=== PATIENT | male | born 1990 | race Caucasian/White ===

== ENCOUNTER 2018-09-05 19:51 | Emergency (ER) | payer MEDICAID ==
[2018-09-05] MEDS ORDERED: predniSONE 20 MG Tab ONE (20:03)
[2018-09-05] MEDS ORDERED: Albuterol/Ipratropium 3.0-0.5 MG/3 ML Neb Soln ONE ×2 (20:03→21:22)
[2018-09-05] MEDS ORDERED: predniSONE 20 MG Tab PO STA (20:05)
[2018-09-05] MEDS ORDERED: Albuterol/Ipratropium 3.0-0.5 MG/3 ML Neb Soln NEB ONE (20:05)
--- NOTE | 2018-09-05 20:34 | EDM.PDOC ---
ED HPI GENERAL MEDICAL PROBLEM - General Chief Complaint: Respiratory Problem Stated Complaint: BAD COUGH, PASSED OUT Time Seen by Provider: 09/05/18 20:22 Source of Information: Reports: Patient History Limitations: Reports: No Limitations - History of Present Illness INITIAL COMMENTS - FREE TEXT/NARRATIVE: Patient is a 27-year-old gentleman who presents to the emergency department this evening with a complaint of cough, congestion, and wheezing for the past 3 days. Patient has a history of asthma and is currently taking home nebulizer treatments with albuterol, has young children at home who both were recently diagnosed with URI. Patient states that he's had some chills, however, no documented fever. Patient denies chest pain, nausea, vomiting, diarrhea, or out of country travel. Onset: Gradual Duration: Day(s): Location: Reports: Chest Severity: Mild Improves with: Reports: None Worsens with: Reports: Breathing Associated Symptoms: Reports: Cough, Fever/Chills, Shortness of Breath. Denies : cough w sputum, Nausea/Vomiting Treatments PROFESSIONAL ADVISOR: Reports: Home Treatments (Albuterol nebulizer) - Related Data Allergies Allergy/AdvReac Type Severity Reaction Status Date / Time No Known Allergies Allergy Verified 09/05/18 20:41 Home Meds: Home Meds Albuterol [Ventolin HFA] 2 puff INH ASDIRECTED PRN 09/13/16 [History] Albuterol/Ipratropium [DuoNeb 3.0-0.5 MG/3 ML] 3 ml INH QID PRN 09/13/16 [ History] Cyclobenzaprine [Flexeril] 10 mg PO TID PRN 09/13/16 [History] Albuterol/Ipratropium [DuoNeb 3.0-0.5 MG/3 ML] 3 ml .XX QID #30 neb 09/05/18 [Rx ] Azithromycin [Zithromax] 500 mg PO DAILY #4 tab 09/05/18 [Rx] predniSONE [Prednisone] 40 mg PO DAILY #6 tablet 09/05/18 [Rx] Past Medical History - Past Health History Medical/Surgical History: Denies Medical/Surgical History HEENT History: Reports: None Cardiovascular History: Reports: Other (See Below) Other Cardiovascular History: Patient is not certain about his cholesterol status however note fatty liver by CT scan Respiratory History: Reports: Asthma, Bronchitis, Recurrent Gastrointestinal History: Reports: GERD Genitourinary History: Reports: None Musculoskeletal History: Reports: Arthritis, Back Pain, Chronic, Fracture, Osteoarthritis, Other (See Below) Other Musculoskeletal History: Boxer's fracture of the right hand at age 17 Neurological History: Reports: Headaches, Chronic, Migraines, Seizure, Other ( See Below) Other Neuro History: Unknown type of seizure at about age 20 Psychiatric History: Reports: None Endocrine/Metabolic History: Reports: None, Obesity/BMI 30+ Hematologic History: Reports: None Immunologic History: Reports: None Oncologic (Cancer) History: Reports: None Dermatologic History: Reports: None - Infectious Disease History Infectious Disease History: Reports: Chicken Pox - Past Surgical History HEENT Surgical History: Reports: Adenoidectomy, Myringotomy w Tube(s), Tonsillectomy, Other (See Below) Male Surgical History: Reports: Circumcision, Vasectomy, Other (See Below) Musculoskeletal Surgical History: Reports: Arthroscopic Knee, Arthroscopic Procedure, ORIF, Other (See Below) - Past Imaging History Past Imaging History: Reports: CAT Scan, MRI Social & Family History - Caffeine Use Caffeine Use: Reports: Coffee, Soda - Living Situation & Occupation Living situation: Reports: with Significant Other, with Family Occupation: Unemployed ED ROS GENERAL - Review of Systems Review Of Systems: ROS reveals no pertinent complaints other than HPI. Constitutional: Reports: Chills HEENT: Reports: No Symptoms Respiratory: Reports: Shortness of Breath, Wheezing Cardiovascular: Reports: No Symptoms Endocrine: Reports: No Symptoms GI/Abdominal: Reports: No Symptoms : Reports: No Symptoms Musculoskeletal: Reports: No Symptoms Skin: Reports: No Symptoms Neurological: Reports: No Symptoms Psychiatric: Reports: No Symptoms Hematologic/Lymphatic: Reports: No Symptoms Immunologic: Reports: No Symptoms ED EXAM, GENERAL - Physical Exam Exam: See Below Exam Limited By: No Limitations General Appearance: Alert, WD/WN, No Apparent Distress Eye Exam: Bilateral Eye: Normal Inspection Ears: Normal External Exam, Normal Canal, Normal TMs Nose: Normal Inspection, No Blood, Clear Rhinorrhea Throat/Mouth: Normal Inspection, Normal Oropharynx, No Airway Compromise Head: Atraumatic, Normocephalic Neck: Normal Inspection, Supple. No: Lymphadenopathy (L), Lymphadenopathy (R) Respiratory/Chest: No Respiratory Distress, Wheezing (Expiratory, throughout) Cardiovascular: Regular Rate, Rhythm, No Murmur Extremities: Normal Inspection, No Pedal Edema Neurological: Alert, Oriented, Normal Cognition Psychiatric: Normal Affect, Normal Mood Skin Exam: Warm, Dry, Intact, Normal Color, No Rash Lymphatic: No Adenopathy Course - Vital Signs Last Recorded V/S: Last Vital Signs Temp 98.3 F 09/05/18 19:51 Pulse 87 09/05/18 19:51 Resp 22 H 09/05/18 19:51 BP 130/80 09/05/18 19:51 Pulse Ox 94 L 09/05/18 19:51 - Orders/Labs/Meds Orders: Active Orders 24 hr Category Date Time Status Chest 2V [CR] Stat Exams 09/05/18 20:02 Ordered Meds: Medications Discontinued Medications Generic Name Dose Route Start Last Admin Trade Name Jannet PRN Reason Stop Dose Admin Albuterol/Ipratropium Confirm 09/05/18 20:03 09/05/18 20:10 Duoneb 3.0-0.5 Mg/3 Ml Administered 09/05/18 20:04 Not Given Dose 3 ml .ROUTE .STK-MED ONE Albuterol/Ipratropium 3 ml 09/05/18 20:05 09/05/18 20:07 Duoneb 3.0-0.5 Mg/3 Ml NEB 09/05/18 20:06 3 ml ONETIME ONE Administration Azithromycin 500 mg 09/05/18 20:56 Zithromax PO 09/05/18 20:57 ONETIME ONE Prednisone Confirm 09/05/18 20:03 09/05/18 20:10 Prednisone Administered 09/05/18 20:04 Not Given Dose 40 mg .ROUTE .STK-MED ONE Prednisone 40 mg 09/05/18 20:05 09/05/18 20:07 Prednisone PO 09/05/18 20:06 40 mg NOW STA Administration - Radiology Interpretation Free Text/Narrative:: Chest x-ray shows mild right perihilar congestion - Re-Assessments/Exams Free Text/Narrative Re-Assessment/Exam: 09/05/18 21:00 Patient afebrile, vital signs stable, breath sounds clear, influenza negative. patient given 500 mg Zithromax and 40 mg prednisone in ER. Patient given prescription for DuoNeb, prednisone, and Zithromax. Departure - Departure Time of Disposition: 21:00 Disposition: Home, Self-Care Condition: Good Clinical Impression: Asthmatic bronchitis with acute exacerbation Qualifiers: Asthma severity: mild Asthma persistence: intermittent Qualified Code(s): J45.21 - Mild intermittent asthma with (acute) exacerbation - Discharge Information Prescriptions: Albuterol/Ipratropium [DuoNeb 3.0-0.5 MG/3 ML] 3 ml .XX QID #30 neb Azithromycin [Zithromax] 500 mg PO DAILY #4 tab predniSONE [Prednisone] 40 mg PO DAILY #6 tablet Instructions: Bronchospasm, Adult, Ejfo-ce-[id number], Asthma, Adult, [id number], How to Use a Nebulizer, Adult, Acute Bronchitis, Adult, [id number] Referrals: Lexus Elizondo, MOLDING PLASTERER [Primary Care Provider] - Forms: ED Department Discharge Additional Instructions: Follow-up at [facility] in 1-2 days. Return to emergency sooner if symptoms continue or worsen. - My Orders Last 24 Hours: My Active Orders 09/05/18 20:02 Chest 2V [CR] Stat - Assessment/Plan Last 24 Hours: My Active Orders 09/05/18 20:02 Chest 2V [CR] Stat Assessment:: Asthmatic bronchitis Plan: Follow-up with PCP
[2018-09-05] MEDS ORDERED: Azithromycin 250 MG Tab PO ONE (20:56)
[2018-09-05 23:58] VITALS: BP 142/74
--- NOTE | 2018-09-06 08:17 | CR ---
[id number] RAD/RAD Chest PA And Lateral EXAM: RAD Chest PA And Lateral CLINICAL DATA: COUGH. FEVER. COMPARISON: CORRELATION IS MADE WITH THE EXAM OF APRIL 23, 2011. FINDINGS: The lungs are clear. The cardiomediastinal contour is normal. The regional bones and soft tissues are unremarkable. IMPRESSION: NO ACUTE PROCESS. Yuniel Marshall MD 09/06/18 0814 Thank you for allowing us to participate in the care of your patient.
== END 2018-09-05 21:30 | disposition home or self-care (01) ==
LOC: KA.ED 19:51
DX: J45.21 Mild intermittent asthma with (acute) exacerbation (principal); Z79.899 Other long term (current) drug therapy
CPT/HCPCS: 71046; 87804; 99283-25; A9270-GY; J7620-GY

== ENCOUNTER 2018-09-26 06:34 | Emergency (ER) | payer MEDICAID ==
[2018-09-26 06:40] VITALS: BP 150/90
[2018-09-26] MEDS ORDERED: Acetaminophen/HYDROcodone 325-5 MG Tab PO ONE (07:18)
[2018-09-26] MEDS ORDERED: Cephalexin 250 MG Cap PO ONE (07:18)
[2018-09-26] MEDS ORDERED: Ketorolac 10 MG Tab PO ONE (07:18)
--- NOTE | 2018-09-26 07:27 | EDM.PDOC ---
ED HPI GENERAL MEDICAL PROBLEM - General Chief Complaint: General Stated Complaint: tooth ache/broken tooth Time Seen by Provider: 09/26/18 07:00 Source of Information: Reports: Patient History Limitations: Reports: No Limitations - History of Present Illness INITIAL COMMENTS - FREE TEXT/NARRATIVE: 27-year-old male presents to the emergency room with complaints of dental pain. Patient states that he was eating supper last night when he felt a sharp pain and had a fracture of his right bottom molar. He did take some [id number] anti-inflammatories and Tylenol hoping he would have enough relief that would last him through Thursday to get to the dentist. He reports he has had little relief and no sleep last night. He now presents emergency room for evaluation. He does feel some slight fullness in his right ear. No other complaints were voiced. He was seen in the emergency room couple weeks ago for an upper respiratory infection. 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: Acetaminophen right lower side/tooth pain Pain Score (Numeric/FACES): 9 - Related Data Allergies Allergy/AdvReac Type Severity Reaction Status Date / Time No Known Drug Allergies Allergy Cannot Verified 09/26/18 06:43 Remember Home Meds: Home Meds Albuterol [Ventolin HFA] 2 puff INH ASDIRECTED PRN 09/13/16 [History] Albuterol/Ipratropium [DuoNeb 3.0-0.5 MG/3 ML] 3 ml INH QID PRN 09/13/16 [ History] Cyclobenzaprine [Flexeril] 10 mg PO TID PRN 09/13/16 [History] Past Medical History - Past Health History Medical/Surgical History: Denies Medical/Surgical History HEENT History: Reports: None Cardiovascular History: Reports: Other (See Below) Other Cardiovascular History: Patient is not certain about his cholesterol status however note fatty liver by CT scan Respiratory History: Reports: Asthma, Bronchitis, Recurrent Gastrointestinal History: Reports: GERD Genitourinary History: Reports: None Musculoskeletal History: Reports: Arthritis, Back Pain, Chronic, Fracture, Osteoarthritis, Other (See Below) Other Musculoskeletal History: Boxer's fracture of the right hand at age 17 Neurological History: Reports: Headaches, Chronic, Migraines, Seizure, Other ( See Below) Other Neuro History: Unknown type of seizure at about age 20 Psychiatric History: Reports: None Endocrine/Metabolic History: Reports: None, Obesity/BMI 30+ Hematologic History: Reports: None Immunologic History: Reports: None Oncologic (Cancer) History: Reports: None Dermatologic History: Reports: None - Infectious Disease History Infectious Disease History: Reports: Chicken Pox - Past Surgical History Head Surgeries/Procedures: Reports: None HEENT Surgical History: Reports: Adenoidectomy, Myringotomy w Tube(s), Tonsillectomy, Other (See Below) Male Surgical History: Reports: Circumcision, Vasectomy, Other (See Below) Musculoskeletal Surgical History: Reports: Arthroscopic Knee, Arthroscopic Procedure, ORIF, Other (See Below) - Past Imaging History Past Imaging History: Reports: CAT Scan, MRI Social & Family History - Tobacco Use Smoking Status *Q: Current Every Day Smoker Years of Tobacco use: 12 Packs/Tins Daily: 1 Used Tobacco, but Quit: No Second Hand Smoke Exposure: Yes - Caffeine Use Caffeine Use: Reports: Coffee, Energy Drinks, Soda, Tea - Recreational Drug Use Recreational Drug Use: No - Living Situation & Occupation Living situation: Reports: with Significant Other, with Family Occupation: Unemployed ED ROS ENT - Review of Systems Review Of Systems: ROS reveals no pertinent complaints other than HPI. ED EXAM, ENT - Physical Exam Exam: See Below Exam Limited By: No Limitations General Appearance: Alert, Mild Distress, Obese, Other (Unkempt) Eye Exam: Bilateral Eye: EOMI, PERRL Ears: Normal External Exam, Normal Canal, Hearing Grossly Normal, Normal TMs Nose: Normal Inspection Mouth/Throat: Normal Lips, Normal Oropharynx, Dental Pain, Dental Trauma (Tooth fracture of the bottom second to last molar on the right side #31). No: Dental Abcess, Peritonsillar Mass Head: Atraumatic, Normocephalic Neck: Normal Inspection, Supple Respiratory/Chest: No Respiratory Distress Course - Vital Signs Last Recorded V/S: Last Vital Signs Temp 98.9 F 09/26/18 06:35 Pulse 89 09/26/18 06:35 Resp 18 09/26/18 06:35 BP 150/90 H 09/26/18 06:35 Pulse Ox 95 09/26/18 06:35 - Orders/Labs/Meds Meds: Medications Discontinued Medications Generic Name Dose Route Start Last Admin Trade Name Jannet PRN Reason Stop Dose Admin Hydrocodone Bitart/Acetaminophen 6 tab 09/26/18 07:18 [place] 325-5 Mg PO 09/26/18 07:19 ONETIME ONE Cephalexin 1,250 mg 09/26/18 07:18 Keflex PO 09/26/18 07:19 ONETIME ONE Ketorolac Tromethamine 50 mg 09/26/18 07:18 Toradol PO 09/26/18 07:19 ONETIME ONE Departure - Departure Time of Disposition: 07:45 Disposition: Home, Self-Care 01 Condition: Good Clinical Impression: Tooth fracture Qualifiers: Encounter type: initial encounter Fracture type: closed Qualified Code(s): S02.5XXA - Fracture of tooth (traumatic), initial encounter for closed fracture - Discharge Information Instructions: Tooth Injuries, Hmhu-mu-Ulhw Forms: ED Department Discharge - Assessment/Plan Assessment:: Tooth fracture #31 right bottom second to the last molar Plan: 1. [place] 5/325 one by mouth every 6 hours when necessary for pain #6 2. Toradol 10 mg 1 by mouth every 8 hours when necessary for pain #5 3. Keflex 250 mg 4 times a day prophylaxis for dental fracture #5 4. Patient will need to call a dentist first thing Thursday morning for an appointment for either having the tooth pulled or crown placed.
== END 2018-09-26 07:40 | disposition home or self-care (01) ==
LOC: KA.ED 06:34
DX: S02.5XXA Fracture of tooth (traumatic), initial encounter for closed fracture (principal); F17.210 Nicotine dependence, cigarettes, uncomplicated; X58.XXXA Exposure to other specified factors, initial encounter
CPT/HCPCS: 99282

== ENCOUNTER 2019-02-28 11:27 | Emergency (ER) | payer SELFPAY ==
[2019-02-28 11:52] VITALS: BP 139/89
--- NOTE | 2019-02-28 12:12 | EDM.PDOC ---
ED HPI GENERAL MEDICAL PROBLEM - General Chief Complaint: General Stated Complaint: LEFT LEG PAIN, NECK PAIN, S/P FALL 02/27/19 Time Seen by Provider: 02/28/19 12:01 Source of Information: Reports: Patient, Significant Other History Limitations: Reports: No Limitations - History of Present Illness INITIAL COMMENTS - FREE TEXT/NARRATIVE: Patient presents with neck pain and knee pain after falling yesterday afternoon. He says at around 2:30 yesterday he coughed until he passed out, fell forward hitting his forehead on a cement wall and landing on left knee. A friend with him at the time told him he was unconscious for 5-10 seconds. No incontinence or vomiting. He denies headache but posterior neck hurts a lot and left knee hurts quite a bit too. He says he has had 4 episodes over the past few years, like this where he coughs, overheats and passes out. He has seen his PCP for it. Denies any seizure history. He has a history of asthma but no problems in recent years and denies dyspnea with this episode. 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: Acetaminophen Left Knee Pain Score (Numeric/FACES): 9 Posterior Neck Pain Score (Numeric/FACES): 9 - Related Data Allergies Allergy/AdvReac Type Severity Reaction Status Date / Time No Known Drug Allergies Allergy Cannot Verified 09/26/18 06:43 Remember Home Meds: Home Meds Albuterol [Ventolin HFA] 2 puff INH ASDIRECTED PRN 09/13/16 [History] Albuterol/Ipratropium [DuoNeb 3.0-0.5 MG/3 ML] 3 ml INH QID PRN 09/13/16 [ History] Cyclobenzaprine [Flexeril] 10 mg PO TID PRN 09/13/16 [History] Past Medical History - Past Health History Medical/Surgical History: Denies Medical/Surgical History HEENT History: Reports: None Cardiovascular History: Reports: Other (See Below) Other Cardiovascular History: Patient is not certain about his cholesterol status however note fatty liver by CT scan Respiratory History: Reports: Asthma, Bronchitis, Recurrent Gastrointestinal History: Reports: GERD Genitourinary History: Reports: None Musculoskeletal History: Reports: Arthritis, Back Pain, Chronic, Fracture, Osteoarthritis, Other (See Below) Other Musculoskeletal History: Boxer's fracture of the right hand at age 17 Neurological History: Reports: Headaches, Chronic, Migraines, Seizure, Other ( See Below) Other Neuro History: Unknown type of seizure at about age 20 Psychiatric History: Reports: None Endocrine/Metabolic History: Reports: None, Obesity/BMI 30+ Hematologic History: Reports: None Immunologic History: Reports: None Oncologic (Cancer) History: Reports: None Dermatologic History: Reports: None - Infectious Disease History Infectious Disease History: Reports: Chicken Pox - Past Surgical History Head Surgeries/Procedures: Reports: None HEENT Surgical History: Reports: Adenoidectomy, Myringotomy w Tube(s), Tonsillectomy, Other (See Below) Male Surgical History: Reports: Circumcision, Vasectomy, Other (See Below) Musculoskeletal Surgical History: Reports: Arthroscopic Knee, Arthroscopic Procedure, ORIF, Other (See Below) - Past Imaging History Past Imaging History: Reports: CAT Scan, MRI Social & Family History - Caffeine Use Caffeine Use: Reports: Coffee, Energy Drinks, Soda, Tea - Living Situation & Occupation Living situation: Reports: with Significant Other, with Family Occupation: Unemployed ED ROS GENERAL - Review of Systems Review Of Systems: See Below Constitutional: Denies: Fever, Chills, Malaise, Weakness HEENT: Denies: Ear Pain, Throat Pain, Vision Change Respiratory: Denies: Shortness of Breath, Cough Cardiovascular: Denies: Chest Pain, Lightheadedness, Syncope Endocrine: Reports: No Symptoms GI/Abdominal: Denies: Abdominal Pain, Diarrhea, Vomiting : Denies: Dysuria, Flank Pain, Incontinence Musculoskeletal: Reports: Neck Pain, Joint Pain (left knee). Denies: Shoulder Pain, Arm Pain, Back Pain, Hand Pain Skin: Reports: Other (abrasions of right forehead, cheek and left lateral knee) . Denies: Cyanosis, Jaundice, Mottled, Pallor, Diaphoresis Neurological: Denies: Confusion, Dizziness, Headache, Seizure, Syncope, Trouble Speaking, Difficulty Walking Psychiatric: Denies: Agitation, Anxiety, Confusion ED EXAM, GENERAL - Physical Exam Exam: See Below Exam Limited By: No Limitations General Appearance: Alert, WD/WN, No Apparent Distress Eye Exam: Bilateral Eye: EOMI, Normal Inspection, PERRL Ears: Normal External Exam, Normal Canal, Hearing Grossly Normal, Normal TMs Nose: Normal Inspection, No Blood Throat/Mouth: Normal Inspection, Normal Lips, Normal Teeth, Normal Gums, Normal Oropharynx, Normal Voice, No Airway Compromise Head: Normocephalic, Other (abrasions of right forehead and cheek). No: Facial Swelling, Facial Tenderness Neck: Limited Range of Motion (pain), Tender Lateral, Tender Midline Respiratory/Chest: No Respiratory Distress, Lungs Clear, Normal Breath Sounds, No Accessory Muscle Use Cardiovascular: Regular Rate, Rhythm, No Murmur GI/Abdominal: Soft, Non-Tender, No Organomegaly, No Distention Back Exam: Normal Inspection, Full Range of Motion Extremities: Other (left knee is tender over patella midline to lateral and surrounding soft tissue. No laxity or effusion appreciated. There is a 3x4 cm abrasion of lateral left knee.) Neurological: Alert, Oriented, CN II-XII Intact, Normal Cognition, No Motor/ Sensory Deficits Psychiatric: Normal Affect, Normal Mood Skin Exam: Warm, Dry, Intact, Normal Color, No Rash Course - Vital Signs Last Recorded V/S: Last Vital Signs Temp 98.6 F 02/28/19 11:38 Pulse 89 02/28/19 11:38 Resp 18 02/28/19 11:38 BP 139/89 02/28/19 11:38 Pulse Ox 96 02/28/19 11:38 - Orders/Labs/Meds Orders: Active Orders 24 hr Category Date Time Status Cervical Spine wo Cont [CT] Stat Exams 02/28/19 11:47 Ordered Head wo Cont [CT] Stat Exams 02/28/19 11:47 Ordered Knee 3V Lt [CR] Stat Exams 02/28/19 11:47 Ordered - Re-Assessments/Exams Free Text/Narrative Re-Assessment/Exam: 02/28/19 12:58 CTs and xrays are all negative for acute pathology. Discussed findings, expectations and treatment plan with patient. He has used Flexeril and says it doesn't cause drowsiness for him; I still cautioned him about use with driving. Patient discharged to home in stable condition. Departure - Departure Time of Disposition: 12:51 Disposition: Home, Self-Care 01 Condition: Good Clinical Impression: Contusion of left knee, initial encounter Mild closed head injury Qualifiers: Encounter type: initial encounter Qualified Code(s): S09.90XA - Unspecified injury of head, initial encounter Whiplash injury to neck Qualifiers: Encounter type: initial encounter Qualified Code(s): S13.4XXA - Sprain of ligaments of cervical spine, initial encounter - Discharge Information Instructions: Head Injury, Adult, Bacx-[id number], Cervical Sprain, [id number] Referrals: Lexus Elizondo, DEVELOPMENT ENG [Primary Care Provider] - Additional Instructions: 1. Take Ibuprofen 600 mg every 6-8 hours for 3-4 days then as needed. 2. Take Flexeril as directed. 3. You can use Tylenol as directed if pain not adequately controlled by the ibuprofen. 4. Follow up with your PCP in 3-4 days if not improving or sooner if worsening. - My Orders Last 24 Hours: My Active Orders 02/28/19 11:47 Cervical Spine wo Cont [CT] Stat Head wo Cont [CT] Stat Knee 3V Lt [CR] Stat - Assessment/Plan Last 24 Hours: My Active Orders 02/28/19 11:47 Cervical Spine wo Cont [CT] Stat Head wo Cont [CT] Stat Knee 3V Lt [CR] Stat
--- NOTE | 2019-02-28 12:35 | CT ---
[id number] CT/CT Head WO IV EXAM: CT Head WO IV CLINICAL DATA: PAIN,STATUS POST SYNCOPAL EPISODE HIT HEAD. COMPARISON STUDY: None FINDINGS: No intracranial hemorrhage, extra-axial fluid collection, mass, or acute ischemia. Soft tissues are unremarkable. Mild mucosal thickening. The mastoid air cells are clear. IMPRESSION: No acute intracranial findings. Kobi Damon DO 02/28/19 [id number] Thank you for allowing us to participate in the care of your patient.
--- NOTE | 2019-02-28 12:41 | CT ---
[id number] CT/CT Cervical Spine WO IV Exam: CT Cervical Spine WO IV CLINICAL DATA: PAIN. COMPARISON: None. FINDINGS: Reversal of the normal cervical lordosis. No fracture or subluxation is seen. The C1-C2 articulation is unremarkable. The prevertebral soft tissues are within normal limits. IMPRESSION: NO FRACTURE OR SUBLUXATION. Kobi Damon DO 02/28/19 [id number] Thank you for allowing us to participate in the care of your patient.
--- NOTE | 2019-02-28 12:42 | CR ---
[id number] RAD/RAD Knee Left 3V EXAM: 3 VIEWS LEFT KNEE INDICATION: PAIN,STATUS POST SYNCOPAL EPISODE HIT LEFT KNEE. COMPARISON: None. DISCUSSION: No fracture, dislocation or other osseous abnormality. IMPRESSION: 1. Negative exam. Kobi Damon DO 02/28/19 1242 Thank you for allowing us to participate in the care of your patient.
== END 2019-02-28 13:01 | disposition home or self-care (01) ==
LOC: KA.ED 11:27
DX: S06.9X1A Unspecified intracranial injury with loss of consciousness of 30 minutes or less, initial encounter (principal); S13.4XXA Sprain of ligaments of cervical spine, initial encounter; S80.02XA Contusion of left knee, initial encounter; J45.909 Unspecified asthma, uncomplicated; M19.90 Unspecified osteoarthritis, unspecified site; E66.9 Obesity, unspecified; Z68.41 Body mass index [BMI] 40.0-44.9, adult; Z79.899 Other long term (current) drug therapy; W19.XXXA Unspecified fall, initial encounter; W22.8XXA Striking against or struck by other objects, initial encounter
CPT/HCPCS: 70450; 72125; 73562-LT; 99284-25

== ENCOUNTER 2019-04-15 12:13 | Observation (INO) | payer BC, MEDICAID ==
[2019-04-15] MEDS ORDERED: Sodium Chloride 0.9% 10 ML Syringe FLUSH PRN (12:33)
[2019-04-15] MEDS ORDERED: Albuterol 0.083% 2.5 MG/3 ML Neb Soln NEB PRN (12:33)
[2019-04-15] MEDS ORDERED: methylPREDNISolone Sodium Succinate 125 MG/2 ML SDV IVPUSH ONE (12:53)
--- NOTE | 2019-04-15 13:34 | CR ---
[id number] RAD/RAD Chest PA And Lateral EXAM: RAD Chest PA And Lateral CLINICAL DATA: ACUTE ASTHMA EXACERBATION COMPARISON: CORRELATION IS MADE WITH THE EXAM OF SEPTEMBER 05, 2018 FINDINGS: The lungs are clear. The cardiomediastinal contour is normal. The regional bones and soft tissues are unremarkable. IMPRESSION: NO ACUTE PROCESS. Yuniel Marshall MD 04/15/19 [id number] Thank you for allowing us to participate in the care of your patient.
[2019-04-15 13:41] LABS: ANION GAP 16.1 mmol/L (5-15); CHLORIDE,CL 104 mmol/L (98-115); SODIUM,NA 144 mmol/L (136-145)
[2019-04-15] MEDS ORDERED: Cyclobenzaprine 10 MG Tab PO PRN (14:27)
[2019-04-15] MEDS ORDERED: Albuterol 8 GM Inhaler INH PRN (14:27)
[2019-04-15] MEDS: Azithromycin 250 MG Tab PO SCH (15:49)
[2019-04-15] MEDS ORDERED: Albuterol 0.083% 2.5 MG/3 ML Neb Soln NEB SCH (16:00)
[2019-04-15] MEDS ORDERED: methylPREDNISolone Sodium Succinate 125 MG/2 ML SDV IVPUSH SCH (17:00)
[2019-04-15] MEDS: Albuterol/Ipratropium 3.0-0.5 MG/3 ML Neb Soln NEB SCH ×2 (18:27→22:55)
[2019-04-15] MEDS ORDERED: Albuterol 8 GM Inhaler **OWN MED INH PRN ×2 (19:26→19:30)
[2019-04-15] MEDS: Budesonide 0.5 MG/2 ML Neb Susp NEB SCH (19:54)
[2019-04-15] MEDS: methylPREDNISolone Sodium Succinate 125 MG/2 ML SDV IVPUSH SCH (20:04)
[2019-04-15] MEDS ORDERED: Nicotine 14 MG/24 Hr Patch ONE (20:09)
[2019-04-15] MEDS ORDERED: Montelukast 10 MG Tab PO SCH (21:00)
[2019-04-16] MEDS ORDERED: guaiFENesin/Dextromethorphan 100-10 MG/5 ML Soln 5 ML Cup PO ONE (00:52)
[2019-04-16] MEDS ORDERED: Benzonatate 100 MG Cap PO PRN (01:05)
[2019-04-16] MEDS ORDERED: Albuterol 8 GM Inhaler INH PRN (01:31)
[2019-04-16] MEDS ORDERED: Albuterol 8 GM Inhaler**OWN MED INH PRN (01:36)
[2019-04-16] MEDS ORDERED: ALPRAZolam 0.25 MG Tab PO PRN (03:36)
[2019-04-16] MEDS: Albuterol/Ipratropium 3.0-0.5 MG/3 ML Neb Soln NEB SCH (04:06)
[2019-04-16] MEDS: methylPREDNISolone Sodium Succinate 125 MG/2 ML SDV IVPUSH SCH (04:09)
[2019-04-16] MEDS ORDERED: guaiFENesin/Dextromethorphan 100-10 MG/5 ML Soln 5 ML Cup PO SCH (05:00)
[2019-04-16 06:54] VITALS: BP 146/89; PULSE 93
[2019-04-16] MEDS: Budesonide 0.5 MG/2 ML Neb Susp NEB SCH (08:00)
[2019-04-16] MEDS: Azithromycin 250 MG Tab PO SCH (08:02)
[2019-04-16] MEDS ORDERED: Nicotine 14 MG/24 Hr Patch TRDERM SCH (09:00)
[2019-04-16] MEDS ORDERED: Loratadine 10 MG Tab PO SCH (09:00)
--- NOTE | 2019-04-18 08:40 | CR ---
[id number] RAD/RAD Chest PA And Lateral EXAM: RAD Chest PA And Lateral INDICATION: ASTHMA EXACERBATION. COMPARISON: April 15, 2019. DISCUSSION: Cardiomediastinal silhouette is normal in size and contour. Low lung volumes result in bibasal vascular crowding and atelectasis. No evidence of pneumonia, effusion, edema, or pneumothorax. IMPRESSION: As above. Neftali Bernstein MD 04/18/19 0837 Thank you for allowing us to participate in the care of your patient.
--- NOTE | 2019-04-18 09:08 | DISCH ---
ADMITTING DIAGNOSIS: Exacerbation of asthma. DISCHARGE DIAGNOSIS: Exacerbation of asthma, improved. BRIEF HISTORY AND ESSENTIAL PHYSICAL FINDINGS: This is a 28-year-old male patient who came in the clinic. He has been treated for asthma since 02/27/2019. The patient states ever since 02/27/2019, he has been having coughing and breathing spells. He says he has a family history of asthma. He states that his sister has very bad asthma. 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 He states that recently he has been just coughing a lot. He was started on Flovent 5 days ago. He was started on Singulair. He had PFTs performed in [facility] on 03/18/2019, which showed asthma. It had a very significant response with albuterol treatment. The patient was started on albuterol inhaler, Flovent and Singulair, and he was at home and continued to get worse instead better. He states that since starting the Flovent, he thought he actually got worse. He was seen in clinic and then admitted to the hospital for further evaluation and treatment. Upon admission, he got a loading dose of Solu-Medrol 125 mg IV. He was started on DuoNeb every 6 hours schedule and he was also started on Pulmicort nebulizers twice a day. The patient did continue to have coughing spells throughout the night. His oxygen saturations remained within normal limits. The lowest that I ever was reported that his oxygen saturations got to 95%. The patient's family had come during the middle of the night were concerned that the patient was not doing well. The patient had another coughing spell during the night, so chest x- ray was performed, which showed acute bronchitis. The patient was given another DuoNeb treatment, was given Xanax. After he was given Xanax, he finally did come down and he did breathe. He also was placed on 1 L of oxygen nasal cannula and after that, his coughing spells improved quite a bit. Today now, the patient states that he whenever or during the hospital, it is better, he feels much better. His breathing is a little bit better. He still coughs, but not as bad. Shortness of breath and chest tightness are improved. He says his cough has been nonproductive since . He denies any fever or chills. The patient is not smoking cigarettes since admission. COURSE IN HOSPITAL WITH COMPLICATIONS IF ANY: The patient throughout the hospital stay, continued to cough a lot. He never had a drop in his saturations. His oxygen saturation stayed greater than 95%, but he did continue to have a lot of bronchospasm with coughing spells. I started him on some Tessalon Perles along with some Robitussin DM. It did improve his cough. He also was given Xanax 1 time dose of 0.25 mg that seemed also greatly improved his coughing spells. FINAL DISPOSITION ON DISCHARGE AND PROGNOSIS: He is stable and improved. I am going to discharge him home with his . IMPRESSION: Exacerbation of asthma. PLAN: First thing we are going to do is get him to quit smoking. He says he can chew tobacco, which I am going to order him on Nicoderm patch at least until he is seen for followup. I am going to send him home. He has a nebulizer machine at home. I am going to have him do Pulmicort nebulizers twice a day and have him stop the Flovent. I am going to have him do the DuoNeb every 6 hours until he is seen in clinic for followup. Sent him home on a tapering dose of prednisone. He can take 40 for 3 days, 30 for 3 days, and continue down until he is weaned off and sent home with couple of cough suppressants, some Tessalon Perles and some Robitussin DM as needed for cough. I am also going to send him home with a small bottle of Xanax 0.25 mg. He can take that when he gets anxious and coughing spells. I am going to keep him off work until he is in clinic for followup. The patient seems to be doing much better. When I was in the room with the patient, talking to him, he was not short of breath. His respiratory rate was 18 breaths per minute. His O2 sats were at 97% while I was in the room. On exam, he had no wheezing, but he did have some diminished sounds with tight airways towards the bases of his lungs. The patient will follow up early next week either Thursday, Thursday, or Thursday with Lexus Elizondo nurse practitioner in the clinic. /[id number]/MODL
== END 2019-04-16 10:47 | disposition home or self-care (01) ==
LOC: KA.MS 12:37 → INTOOBSV 12:37
PROVIDERS: ADMIT Nurse Practitioner Family; ATTEND Physician Assistant
DX: J45.901 Unspecified asthma with (acute) exacerbation (principal); F17.210 Nicotine dependence, cigarettes, uncomplicated; E66.01 Morbid (severe) obesity due to excess calories; Z79.52 Long term (current) use of systemic steroids; Z79.899 Other long term (current) drug therapy; Z68.41 Body mass index [BMI] 40.0-44.9, adult
CPT/HCPCS: 36415; 71046; 80053; 85025; 94640; 96374; 96376; A9270-GY; G0378; J2930; J7613-GY; J7620-GY

== ENCOUNTER 2019-06-13 11:55 | Emergency (ER) | payer BC, MEDICAID ==
[2019-06-13] MEDS ORDERED: Sodium Chloride 0.9% 10 ML Syringe FLUSH PRN (12:14)
[2019-06-13] MEDS ORDERED: Dexamethasone 10 MG/ML SDV IVPUSH ONE (12:14)
[2019-06-13] MEDS ORDERED: Albuterol/Ipratropium 3.0-0.5 MG/3 ML Neb Soln NEB ONE (12:15)
--- NOTE | 2019-06-13 12:30 | EDM.PDOC ---
ED HPI GENERAL MEDICAL PROBLEM - General Chief Complaint: Chest Pain Stated Complaint: CHEST PAIN Time Seen by Provider: 06/13/19 12:02 Source of Information: Reports: Patient History Limitations: Reports: No Limitations - History of Present Illness INITIAL COMMENTS - FREE TEXT/NARRATIVE: Patient is a 28-year-old gentleman who presents to the emergency department via private vehicle this afternoon with a complaint of chest pain and shortness of breath. Patient has a long history of pulmonary concerns. 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 Patient states this morning approximately 10 a.m., while at rest he developed shortness of breath and midsternal chest pain described as sharp. It has been constant, however, somewhat lessened upon presentation. Patient states that he is on a decreasing dose of prednisone. Initially at 60 mg daily and has been decreasing by 10 mg per week. Patient is now on 30 mg and notices respiratory symptoms are becoming worse. Patient did not receive flu immunization this year. Patient denies fever, nausea, vomiting, diarrhea, abdominal pain, lower extremity edema , or any trauma. Onset: Today Onset Time: 10:00 Duration: Hour(s): Location: Reports: Chest Quality: Reports: Sharp Severity: Mild Improves with: Reports: None Worsens with: Reports: Breathing Context: Reports: Other (While at rest). Denies: Trauma Associated Symptoms: Reports: Chest Pain, Shortness of Breath. Denies: Fever/ Chills Left Chest Pain Score (Numeric/FACES): 9 - Related Data Allergies Allergy/AdvReac Type Severity Reaction Status Date / Time No Known Drug Allergies Allergy Cannot Verified 06/13/19 12:14 Remember Home Meds: Home Meds Albuterol [Ventolin HFA] 2 puff INH ASDIRECTED PRN 09/13/16 [History] Cyclobenzaprine [Flexeril] 10 mg PO BEDTIME PRN 09/13/16 [History] Loratadine [Claritin] 10 mg PO DAILY 04/15/19 [History] Montelukast [Singulair] 10 mg PO BEDTIME 04/15/19 [History] Benzonatate [Tessalon Perle] 200 mg PO Q8HR PRN #30 capsule 04/16/19 [Rx] Budesonide [Pulmicort] 0.5 mg INH BID #30 neb 04/16/19 [Rx] Dextromethorphan/guaiFENesin [Robitussin DM] 10 ml PO Q6HR PRN #240 cup [Rx] predniSONE [Prednisone] See Taper PO DAILY #32 tablet 04/16/19 [Rx] Oseltamivir [Tamiflu] 75 mg PO BID #10 cap 06/13/19 [Rx] Past Medical History - Past Health History Medical/Surgical History: Denies Medical/Surgical History HEENT History: Reports: None Cardiovascular History: Reports: Other (See Below) Other Cardiovascular History: Patient is not certain about his cholesterol status however note fatty liver by CT scan Respiratory History: Reports: Asthma, Bronchitis, Recurrent Gastrointestinal History: Reports: GERD Genitourinary History: Reports: None Musculoskeletal History: Reports: Arthritis, Back Pain, Chronic, Fracture, Osteoarthritis, Other (See Below) Other Musculoskeletal History: Boxer's fracture of the right hand at age 17 Neurological History: Reports: Headaches, Chronic, Migraines, Seizure, Other ( See Below) Other Neuro History: Unknown type of seizure at about age 20 Psychiatric History: Reports: None Endocrine/Metabolic History: Reports: None, Obesity/BMI 30+ Hematologic History: Reports: None Immunologic History: Reports: None Oncologic (Cancer) History: Reports: None Dermatologic History: Reports: None - Infectious Disease History Infectious Disease History: Reports: Chicken Pox - Past Surgical History Head Surgeries/Procedures: Reports: None HEENT Surgical History: Reports: Adenoidectomy, Myringotomy w Tube(s), Tonsillectomy, Other (See Below) Male Surgical History: Reports: Circumcision, Vasectomy, Other (See Below) Musculoskeletal Surgical History: Reports: Arthroscopic Knee, Arthroscopic Procedure, ORIF, Other (See Below) - Past Imaging History Past Imaging History: Reports: CAT Scan, MRI Social & Family History - Caffeine Use Caffeine Use: Reports: Coffee, Energy Drinks, Soda, Tea - Living Situation & Occupation Living situation: Reports: with Significant Other, with Family Occupation: Unemployed ED ROS GENERAL - Review of Systems Review Of Systems: Comprehensive ROS is negative, except as noted in HPI. Constitutional: Reports: No Symptoms HEENT: Reports: No Symptoms Respiratory: Reports: Shortness of Breath, Pleuritic Chest Pain, Cough Cardiovascular: Reports: Chest Pain, Dyspnea on Exertion Endocrine: Reports: No Symptoms GI/Abdominal: Reports: No Symptoms : Reports: No Symptoms Musculoskeletal: Reports: No Symptoms Skin: Reports: No Symptoms Neurological: Reports: No Symptoms Psychiatric: Reports: No Symptoms Hematologic/Lymphatic: Reports: No Symptoms Immunologic: Reports: No Symptoms ED EXAM, GENERAL - Physical Exam Exam: See Below Exam Limited By: No Limitations General Appearance: Alert, WD/WN, No Apparent Distress Eye Exam: Bilateral Eye: Normal Inspection Nose: Normal Inspection, Normal Mucosa, No Blood Throat/Mouth: Normal Inspection, Normal Oropharynx, No Airway Compromise Head: Atraumatic, Normocephalic Neck: Normal Inspection, Supple, Non-Tender. No: Lymphadenopathy (L), Lymphadenopathy (R) Respiratory/Chest: No Respiratory Distress, Lungs Clear, No Accessory Muscle Use , Decreased Breath Sounds (Minimally bibasilar) Cardiovascular: Normal Peripheral Pulses, Regular Rate, Rhythm, No Murmur GI/Abdominal: Normal Bowel Sounds, Soft, Non-Tender Back Exam: Normal Inspection. No: CVA Tenderness (L), CVA Tenderness (R) Extremities: Normal Inspection, No Pedal Edema Neurological: Alert, Oriented, Normal Cognition Psychiatric: Normal Affect, Normal Mood Skin Exam: Warm, Dry, Intact, Normal Color, No Rash Lymphatic: No Adenopathy EKG INTERPRETATION EKG Date: 06/13/19 Time: 12:05 Rhythm: NSR Rate (Beats/Min): 87 [place]: Normal P-Wave: Present QRS: Normal ST-T: Normal QT: Normal Comparison: No Change (From 09/13/2016) Course - Vital Signs Last Recorded V/S: Last Vital Signs Temp 97.7 F 06/13/19 12:10 Pulse 74 06/13/19 12:15 Resp 15 06/13/19 12:10 BP 131/84 06/13/19 12:10 Pulse Ox 96 06/13/19 12:10 - Orders/Labs/Meds Orders: Active Orders 24 hr Category Date Time Status EKG Documentation Completion [RC] ASDIRECTED Care 06/13/19 12:14 Ordered Peripheral IV Care [RC] . DIRECTED Care 06/13/19 12:14 Ordered RT Aerosol Therapy [RC] ASDIRECTED Care 06/13/19 12:15 Ordered DRUG SCREEN, URINE [URCHEM] Stat Lab 06/13/19 12:14 Ordered Sodium Chloride 0.9% [Saline Flush] Med 06/13/19 12:14 Ordered 10 ml FLUSH Q8HR PRN Peripheral IV Insertion Adult [OM.PC] Routine Oth 06/13/19 12:14 Ordered EKG 12 Lead [EK] Routine Ther 06/13/19 12:13 Ordered Medication Orders Sodium Chloride (Saline Flush) 10 ml FLUSH Q8HR PRN PRN Reason: keep vein open Last Admin: 06/13/19 12:29 Dose: 10 ml Labs: Laboratory Tests 06/13/19 06/13/19 Range/Units 12:13 12:13 WBC 10.53 H (5.00-10.00) 10^3/uL RBC 5.16 (4.50-6.00) 10^6/uL Hgb 15.6 (13.0-17.0) g/dL Hct 47.2 (40.0-52.0) % MCV 91.5 (82.0-92.0) fL MCH 30.2 (27.0-31.0) pg MCHC 33.1 (32.0-36.0) g/dL RDW 12.9 (11.5-14.5) % Plt Count 284 (150-400) 10^3/uL MPV 10.0 (7.4-10.4) fL Immature Gran % (Auto) 0.1 (0.0-5.0) % Neut % (Auto) 59.2 (50.0-70.0) % Lymph % (Auto) 32.1 (20.0-40.0) % Shannon % (Auto) 6.6 (2.0-8.0) % Eos % (Auto) 1.8 (1.0-3.0) % Baso % (Auto) 0.2 (0.0-1.0) % Immature Gran # (Auto) 0.01 (0.00-0.50) 10^3/uL Neut # (Auto) 6.23 (2.50-7.00) 10^3/uL Lymph # (Auto) 3.38 (1.00-4.00) 10^3/uL Shannon # (Auto) 0.70 (0.10-0.80) 10^3/uL Eos # (Auto) 0.19 (0.10-0.30) 10^3/uL Baso # (Auto) 0.02 (0.00-0.10) 10^3/uL Sodium 141 (136-145) mmol/L Potassium 4.0 (3.3-5.3) mmol/L Chloride 103 (98-115) mmol/L Carbon Dioxide 28.1 (21.0-32.0) mmol/L Anion Gap 13.9 (5-15) mmol/L BUN 14 (6-25) mg/dL Creatinine 0.81 (0.51-1.17) mg/dL Est Cr Clr Drug Dosing 147.70 mL/min Estimated GFR (MDRD) > 60 mL/min Glucose 89 (75 - 99) mg/dL Calcium 9.2 (8.7-10.3) mg/dL Total Bilirubin 0.5 (0.2-1.0) mg/dL AST 19 (15-37) U/L ALT 61 (12-78) U/L Alkaline Phosphatase 45 L (46-116) IU/L Total Protein 6.7 (6.4-8.2) g/dL Albumin 3.80 (3.00-4.80) g/dL Lipase 85 (73-393) U/L Meds: Medications Generic Name Dose Route Start Last Admin Trade Name Freq PRN Reason Stop Dose Admin Sodium Chloride 10 ml 06/13/19 12:14 06/13/19 12:29 Saline Flush FLUSH 10 ml Q8HR PRN Administration keep vein open Discontinued Medications Generic Name Dose Route Start Last Admin Trade Name Freq PRN Reason Stop Dose Admin Albuterol/Ipratropium 3 ml 06/13/19 12:15 06/13/19 12:40 Duoneb 3.0-0.5 Mg/3 Ml NEB 06/13/19 12:16 3 ml ONETIME ONE Administration Dexamethasone 8 mg 06/13/19 12:14 06/13/19 12:26 Dexamethasone IVPUSH 06/13/19 12:15 8 mg ONETIME ONE Administration Oseltamivir Phosphate 75 mg 06/13/19 12:57 Tamiflu PO 06/13/19 12:58 ONETIME ONE - Radiology Interpretation Free Text/Narrative:: Chest x-ray shows no acute cardiopulmonary process - Re-Assessments/Exams Free Text/Narrative Re-Assessment/Exam: 06/13/19 12:58 Patient afebrile, vital signs stable, oxygen saturation 94% on room air, bilateral breath sounds clear, 75 mg Tamiflu administered in the ER. Prescription for 75 mg Tamiflu twice a day 5 days. Patient will follow-up with PCP Departure - Departure Time of Disposition: 12:59 Disposition: Home, Self-Care 01 Condition: Good Clinical Impression: Influenza B, Influenzal bronchitis - Discharge Information Prescriptions: Oseltamivir [Tamiflu] 75 mg PO BID #10 cap Instructions: Influenza, Adult, [id number], Nonspecific Chest Pain, Easy-to- Read Referrals: Lexus Elizondo, SENIOR GL ACCOUNTANT [Primary Care Provider] - Forms: ED Department Discharge Additional Instructions: Follow up with [facility] provider in next 2-3 days. Return to emergency department sooner if symptoms continue or worsen. Increase prednisone to the initial 60 mg per day 1 week and then begin previous advise reduction again. Sepsis Event Note - Evaluation Sepsis Screening Result: No Definite Risk - Focused Exam Vital Signs: Vital Signs Temp Pulse Resp BP Pulse Ox 06/13/19 12:15 74 06/13/19 12:10 97.7 F 87 15 131/84 96 Date Exam was Performed: 06/13/19 Time Exam was Performed: 13:02 - My Orders Last 24 Hours: My Active Orders 06/13/19 12:13 EKG 12 Lead [EK] Routine 06/13/19 12:14 EKG Documentation Completion [RC] ASDIRECTED Peripheral IV Care [RC] . DIRECTED DRUG SCREEN, URINE [URCHEM] Stat Sodium Chloride 0.9% [Saline Flush] 10 ml FLUSH Q8HR PRN Peripheral IV Insertion Adult [OM.PC] Routine 06/13/19 12:15 RT Aerosol Therapy [RC] ASDIRECTED - Assessment/Plan Last 24 Hours: My Active Orders 06/13/19 12:13 EKG 12 Lead [EK] Routine 06/13/19 12:14 EKG Documentation Completion [RC] ASDIRECTED Peripheral IV Care [RC] . DIRECTED DRUG SCREEN, URINE [URCHEM] Stat Sodium Chloride 0.9% [Saline Flush] 10 ml FLUSH Q8HR PRN Peripheral IV Insertion Adult [OM.PC] Routine 06/13/19 12:15 RT Aerosol Therapy [RC] ASDIRECTED
[2019-06-13 12:51] LABS: ANION GAP 13.9 mmol/L (5-15); CHLORIDE,CL 103 mmol/L (98-115); SODIUM,NA 141 mmol/L (136-145)
--- NOTE | 2019-06-13 12:54 | CR ---
[id number] RAD/RAD Chest PA And Lateral EXAM: RAD Chest PA And Lateral INDICATION: CHEST PAIN. COMPARISON: April 16, 2019. DISCUSSION: Cardiomediastinal silhouette is stable in size and contour. No infiltrate, effusion, pneumothorax, or edema. IMPRESSION: No acute cardiopulmonary abnormality. Kobi Damon DO 06/13/19 [id number] Thank you for allowing us to participate in the care of your patient.
[2019-06-13] MEDS ORDERED: Oseltamivir 75 MG Cap PO ONE (12:57)
[2019-06-13 13:04] VITALS: BP 156/84; PULSE 99
== END 2019-06-13 13:13 | disposition home or self-care (01) ==
LOC: KA.ED 11:55
DX: J11.1 Influenza due to unidentified influenza virus with other respiratory manifestations (principal); M19.90 Unspecified osteoarthritis, unspecified site; E66.9 Obesity, unspecified; Z68.42 Body mass index [BMI] 45.0-49.9, adult; Z79.899 Other long term (current) drug therapy
CPT/HCPCS: 36415; 71046; 80053; 83690; 85025; 87804; 93005; 94640; 96374; 99285-25; A9270-GY; J1100; J7620-GY

== ENCOUNTER 2019-08-29 14:49 | Emergency (ER) | payer MEDICAID ==
[2019-08-29 15:08] VITALS: BP 131/87; PULSE 107
--- NOTE | 2019-08-29 15:41 | EDM.PDOC ---
ED HPI GENERAL MEDICAL PROBLEM - General Chief Complaint: General Stated Complaint: THROAT HURTS Time Seen by Provider: 08/29/19 15:26 Source of Information: Reports: Patient History Limitations: Reports: No Limitations - History of Present Illness INITIAL COMMENTS - FREE TEXT/NARRATIVE: Patient presents with pain in anterior neck/throat that started this morning. It especially hurts if he tilts his head up very far. Yesterday he coughed up some hard phlegm balls that he was concerned about. Otherwise hasn't had cough , fever, sneezing or runny nose. They just got home from a weekend at a hotel swimming with the kids. Throat Pain Score (Numeric/FACES): 9 - Related Data Allergies Allergy/AdvReac Type Severity Reaction Status Date / Time No Known Drug Allergies Allergy Cannot Verified 08/29/19 15:19 Remember Home Meds: Home Meds Albuterol [Ventolin HFA] 2 puff INH ASDIRECTED PRN 09/13/16 [History] Cyclobenzaprine [Flexeril] 10 mg PO BEDTIME PRN 09/13/16 [History] Loratadine [Claritin] 10 mg PO DAILY 04/15/19 [History] Montelukast [Singulair] 10 mg PO BEDTIME 04/15/19 [History] Benzonatate [Tessalon Perle] 200 mg PO Q8HR PRN #30 capsule 04/16/19 [Rx] Budesonide [Pulmicort] 0.5 mg INH BID #30 neb 04/16/19 [Rx] Dextromethorphan/guaiFENesin [Robitussin DM] 10 ml PO Q6HR PRN #240 cup [Rx] Past Medical History - Past Health History Medical/Surgical History: Denies Medical/Surgical History HEENT History: Reports: None Cardiovascular History: Reports: Other (See Below) Other Cardiovascular History: Patient is not certain about his cholesterol status however note fatty liver by CT scan Respiratory History: Reports: Asthma, Bronchitis, Recurrent Gastrointestinal History: Reports: GERD Genitourinary History: Reports: None Musculoskeletal History: Reports: Arthritis, Back Pain, Chronic, Fracture, Osteoarthritis, Other (See Below) Other Musculoskeletal History: Boxer's fracture of the right hand at age 17 Neurological History: Reports: Headaches, Chronic, Migraines, Seizure, Other ( See Below) Other Neuro History: Unknown type of seizure at about age 20 Psychiatric History: Reports: None Endocrine/Metabolic History: Reports: None, Obesity/BMI 30+ Hematologic History: Reports: None Immunologic History: Reports: None Oncologic (Cancer) History: Reports: None Dermatologic History: Reports: None - Infectious Disease History Infectious Disease History: Reports: Chicken Pox - Past Surgical History Head Surgeries/Procedures: Reports: None HEENT Surgical History: Reports: Adenoidectomy, Myringotomy w Tube(s), Tonsillectomy, Other (See Below) Male Surgical History: Reports: Circumcision, Vasectomy, Other (See Below) Musculoskeletal Surgical History: Reports: Arthroscopic Knee, Arthroscopic Procedure, ORIF, Other (See Below) - Past Imaging History Past Imaging History: Reports: CAT Scan, MRI Social & Family History - Tobacco Use Smoking Status *Q: Current Every Day Smoker Years of Tobacco use: 14 Packs/Tins Daily: 4 - Caffeine Use Caffeine Use: Reports: Coffee, Energy Drinks, Soda - Recreational Drug Use Recreational Drug Use: No - Living Situation & Occupation Living situation: Reports: with Significant Other, with Family Occupation: Unemployed ED ROS GENERAL - Review of Systems Review Of Systems: See Below Constitutional: Denies: Fever, Decreased Appetite HEENT: Denies: Ear Pain, Throat Swelling, Vision Change Respiratory: Denies: Shortness of Breath, Cough Cardiovascular: Denies: Chest Pain, Lightheadedness, Syncope GI/Abdominal: Denies: Abdominal Pain, Diarrhea, Vomiting : Denies: Dysuria, Flank Pain Musculoskeletal: Denies: Shoulder Pain, Arm Pain, Back Pain Skin: Denies: Cyanosis, Jaundice, Mottled, Pallor, Diaphoresis Neurological: Denies: Confusion, Dizziness, Seizure, Syncope, Trouble Speaking, Difficulty Walking Psychiatric: Denies: Agitation, Anxiety, Confusion ED EXAM, GENERAL - Physical Exam Exam: See Below Exam Limited By: No Limitations General Appearance: Alert, WD/WN, No Apparent Distress Eye Exam: Bilateral Eye: EOMI, Normal Inspection, PERRL Ears: Normal External Exam, Normal Canal, Hearing Grossly Normal, Normal TMs Nose: Normal Inspection, No Blood Throat/Mouth: Normal Inspection, Normal Lips, Normal Voice, No Airway Compromise Head: Atraumatic, Normocephalic Neck: Supple, Tender Midline (anterior only is tender from epiglottis to sternal notch and adjacent muscles bilat. Neck ROM causes pain in anterior soft tissues but nothing in posterior neck. ROM is full.). No: Tender Lateral Respiratory/Chest: No Respiratory Distress, Lungs Clear, Normal Breath Sounds, No Accessory Muscle Use, Chest Non-Tender Cardiovascular: Regular Rate, Rhythm, No Murmur GI/Abdominal: Normal Bowel Sounds, Soft, Non-Tender, No Organomegaly Back Exam: Normal Inspection, Full Range of Motion. No: CVA Tenderness (L), CVA Tenderness (R) Extremities: Normal Inspection, Normal Range of Motion Neurological: Alert, Oriented, Normal Cognition, No Motor/Sensory Deficits Psychiatric: Normal Affect, Normal Mood Skin Exam: Warm, Dry, Intact, Normal Color, No Rash Course - Vital Signs Last Recorded V/S: Last Vital Signs Temp 98.4 F 08/29/19 15:03 Pulse 107 H 08/29/19 15:03 Resp 20 08/29/19 15:03 BP 131/87 08/29/19 15:03 Pulse Ox 95 08/29/19 15:03 - Re-Assessments/Exams Free Text/Narrative Re-Assessment/Exam: 08/29/19 15:39 Discussed findings and treatment plan with patient and he is discharged to home in stable condition. Departure - Departure Time of Disposition: 15:35 Disposition: Home, Self-Care 01 Condition: Good Clinical Impression: Neck muscle strain Qualifiers: Encounter type: initial encounter Qualified Code(s): S16.1XXA - Strain of muscle, fascia and tendon at neck level, initial encounter - Discharge Information Instructions: Muscle Strain, [id number] Referrals: Lexus Elizondo, [employer]GER [Primary Care Provider] - Additional Instructions: 1. Drink 8 cups of water daily. 2. You can take up to 600 mg of Ibuprofen three times/day and/or 500-1000 mg of Tylenol three times/day as needed. 3. If there is worsening of pain or if swelling or fever begins follow up for recheck with your PCP. Sepsis Event Note - Evaluation Sepsis Screening Result: No Definite Risk - Focused Exam Vital Signs: Vital Signs Temp Pulse Resp BP Pulse Ox 08/29/19 15:03 98.4 F 107 H 20 131/87 95 Date Exam was Performed: 08/29/19 Time Exam was Performed: 15:35
== END 2019-08-29 15:55 | disposition home or self-care (01) ==
LOC: KA.ED 14:49
DX: S16.1XXA Strain of muscle, fascia and tendon at neck level, initial encounter (principal); J45.909 Unspecified asthma, uncomplicated; M19.90 Unspecified osteoarthritis, unspecified site; E66.9 Obesity, unspecified; Z68.42 Body mass index [BMI] 45.0-49.9, adult; F17.210 Nicotine dependence, cigarettes, uncomplicated; Z79.899 Other long term (current) drug therapy; X58.XXXA Exposure to other specified factors, initial encounter
CPT/HCPCS: 99283

== ENCOUNTER 2019-12-17 12:14 | Emergency (ER) | payer MEDICAID ==
[2019-12-17 12:22] VITALS: BP 150/88; PULSE 102
[2019-12-17] MEDS ORDERED: Lidocaine 1% with EPINEPHrine 1:100,000 20 ML MDV INJECT ONE (13:01)
[2019-12-17] MEDS ORDERED: Lidocaine 1% with EPINEPHrine 1:100,000 20 ML MDV ONE (13:01)
--- NOTE | 2019-12-17 13:02 | EDM.PDOC ---
ED HPI GENERAL MEDICAL PROBLEM - General Chief Complaint: Upper Extremity Injury/Pain Stated Complaint: FISH HOOK IN LEFT HAND Time Seen by Provider: 12/17/19 12:53 Source of Information: Reports: Patient History Limitations: Reports: No Limitations - History of Present Illness INITIAL COMMENTS - FREE TEXT/NARRATIVE: Patient presents with fish hook in his hand. He had caught a fish and was starting to remove it from the hook when this happened, around 1115 today. He denies fever, immunocompromise, other injuries. Left Hand Pain Score (Numeric/FACES): 6 - Related Data Allergies Allergy/AdvReac Type Severity Reaction Status Date / Time No Known Drug Allergies Allergy Cannot Verified 12/17/19 12:22 Remember Home Meds: Home Meds Albuterol [Ventolin HFA] 2 puff INH ASDIRECTED PRN 09/13/16 [History] Cyclobenzaprine [Flexeril] 10 mg PO BEDTIME PRN 09/13/16 [History] Loratadine [Claritin] 10 mg PO DAILY 04/15/19 [History] Montelukast [Singulair] 10 mg PO BEDTIME 04/15/19 [History] Budesonide [Pulmicort] 0.5 mg INH BID PRN 12/17/19 [History] FLUoxetine HCl [Fluoxetine HCl] 20 mg PO DAILY 12/17/19 [History] Omeprazole 20 mg PO DAILY 12/17/19 [History] Tiotropium [Spiriva HandiHaler] 18 mcg INH BID 12/17/19 [History] Past Medical History - Past Health History Medical/Surgical History: Denies Medical/Surgical History HEENT History: Reports: Allergic Rhinitis, Impaired Vision Cardiovascular History: Reports: Other (See Below) Other Cardiovascular History: Patient is not certain about his cholesterol status however note fatty liver by CT scan Respiratory History: Reports: Asthma, Bronchitis, Recurrent Gastrointestinal History: Reports: GERD Genitourinary History: Reports: None Musculoskeletal History: Reports: Arthritis, Back Pain, Chronic, Fracture, Osteoarthritis Other Musculoskeletal History: Boxer's fracture of the right hand at age 17 Neurological History: Reports: Concussion, Headaches, Chronic, Head Trauma, Migraines, Seizure, Other (See Below) Other Neuro History: Unknown type of seizure at about age 20 Psychiatric History: Reports: Anxiety, Depression, Panic Attack Endocrine/Metabolic History: Reports: Obesity/BMI 30+ Hematologic History: Reports: None Immunologic History: Reports: None Oncologic (Cancer) History: Reports: None Dermatologic History: Reports: None - Infectious Disease History Infectious Disease History: Reports: Chicken Pox - Past Surgical History Head Surgeries/Procedures: Reports: None HEENT Surgical History: Reports: Adenoidectomy, Myringotomy w Tube(s), Tonsillectomy, Other (See Below) Cardiovascular Surgical History: Reports: None Respiratory Surgical History: Reports: None GI Surgical History: Reports: None Male Surgical History: Reports: Circumcision, Vasectomy Endocrine Surgical History: Reports: None Neurological Surgical History: Reports: None Musculoskeletal Surgical History: Reports: Arthroscopic Knee, Arthroscopic Procedure, ORIF - Past Imaging History Past Imaging History: Reports: CAT Scan, MRI Social & Family History - Tobacco Use Smoking Status *Q: Current Every Day Smoker Years of Tobacco use: 13 Packs/Tins Daily: 1 - Caffeine Use Caffeine Use: Reports: Coffee, Energy Drinks, Soda, Tea Other Caffeine Use: energy drinks occ. regular pop - Recreational Drug Use Recreational Drug Use: No - Living Situation & Occupation Living situation: Reports: with Significant Other, with Family Occupation: Unemployed Review of Systems - Review of Systems Review Of Systems: See Below Constitutional: Denies: Chills, Fever, Weakness Eyes: Denies: Vision Change Ears: Denies: Dizziness, Pain Respiratory: Denies: Shortness of Breath, Cough Cardiovascular: Denies: Chest Pain, Syncope GI/Abdominal: Denies: Nausea, Vomiting Musculoskeletal: Reports: Hand Pain. Denies: Neck Pain, Shoulder Pain, Arm Pain, Back Pain, Leg Pain Skin: Denies: Cyanosis, Jaundice, Mottled, Pallor, Diaphoresis Neurological: Denies: Confusion, Dizziness, Headache, Seizure, Syncope, Trouble Speaking, Difficulty Walking ED EXAM, GENERAL - Physical Exam Exam: See Below Exam Limited By: No Limitations General Appearance: Alert, WD/WN, No Apparent Distress Eye Exam: Bilateral Eye: EOMI, Normal Inspection, PERRL Ears: Normal External Exam, Hearing Grossly Normal Nose: Normal Inspection, No Blood Throat/Mouth: Normal Inspection, Normal Lips, Normal Voice, No Airway Compromise Head: Atraumatic, Normocephalic Neck: Normal Inspection, Full Range of Motion Respiratory/Chest: No Respiratory Distress, Lungs Clear, Normal Breath Sounds, No Accessory Muscle Use Cardiovascular: Regular Rate, Rhythm, No Murmur Back Exam: Normal Inspection, Full Range of Motion Extremities: Normal Inspection (except FB left hand), Normal Range of Motion, Other (There is a medium-sized fish hook in the ulnar palm soft tissue. It is not poking through. No erythema. Distal CMS intact.) Neurological: Alert, Oriented, Normal Cognition, No Motor/Sensory Deficits Psychiatric: Normal Affect, Normal Mood Skin Exam: Warm, Dry, Intact, Normal Color, No Rash ED TRAUMA EXTREMITY PROCEDURES - Foreign Body Removal Consent Obtained: Patient Performing Doctor:: Ronn Kahn Anesthesia Type: Local (1.5 cc) Findings:: Barbed fish hook in soft tissue ulnar left palm. Soaked for 15 minutes in hibiclens solution. Anesthetized with 1%/epi. Hibiclens swabs. Used a side cutter to remove the external prongs and then a Jose and 11-blade to advance the remaining hook through the skin surface. Sterile technique was used and patient tolerated very well. Complications:: No Course - Vital Signs Last Recorded V/S: Last Vital Signs Temp 97.0 F 12/17/19 12:18 Pulse 102 H 12/17/19 12:18 Resp 20 12/17/19 12:18 BP 150/88 H 12/17/19 12:18 Pulse Ox 95 12/17/19 12:18 - Orders/Labs/Meds Orders: Active Orders 24 hr Category Date Time Status Vaccines to be Administered [RC] PER UNIT ROUTINE Care 12/17/19 13:10 Active Meds: Medications Discontinued Medications Generic Name Dose Route Start Last Admin Trade Name Sureshq PRN Reason Stop Dose Admin Cephalexin 4,500 mg 12/17/19 13:12 Keflex PO 12/17/19 13:13 ONETIME ONE Diphtheria/Tetanus/Acell Pertussis 0.5 ml 12/17/19 13:10 Adacel IM 12/17/19 13:11 .ONCE ONE Lidocaine/Epinephrine Confirm 12/17/19 13:01 Xylocaine 1% With Epinephrine 1:100,000 Administered 12/17/19 13:02 Dose 20 ml .ROUTE .STK-MED ONE Neomycin/Polymyxin/Bacitracin Confirm 12/17/19 13:25 Triple Antibiotic Oint Administered 12/17/19 13:26 Dose 1 each .ROUTE .STK-MED ONE - Re-Assessments/Exams Free Text/Narrative Re-Assessment/Exam: 12/17/19 13:35 TDAP updated today; patient said last was 2012. Procedure as above to remove devi babb. Discussed findings and treatment plan with patient. He will take antibiotic for 3 days and follow up with his PCP if any problems. Discharged to home in stable condition. Departure - Departure Time of Disposition: 13:28 Disposition: Home, Self-Care 01 Condition: Good Clinical Impression: Fish hook injury of left hand Qualifiers: Encounter type: initial encounter Qualified Code(s): S69.92XA - Unspecified injury of left wrist, hand and finger(s), initial encounter - Discharge Information Referrals: Jennifer Elizondo PHLEBOTOMIST LAB ASSISTANT [Primary Care Provider] - Forms: ED Department Discharge Additional Instructions: Take antibiotic as directed. Follow up with your PCP if any problems or sign of infection. Sepsis Event Note (ED) - Evaluation Sepsis Screening Result: No Definite Risk - Focused Exam Vital Signs: Vital Signs Temp Pulse Resp BP Pulse Ox 12/17/19 12:18 97.0 F 102 H 20 150/88 H 95 - My Orders Last 24 Hours: My Active Orders 12/17/19 13:10 Vaccines to be Administered [RC] PER UNIT ROUTINE - Assessment/Plan Last 24 Hours: My Active Orders 12/17/19 13:10 Vaccines to be Administered [RC] PER UNIT ROUTINE
[2019-12-17] MEDS ORDERED: Diphtheria,Pertussis(Acell),Tetanus Vaccine 0.5 ML SDV IM ONE (13:10)
[2019-12-17] MEDS ORDERED: Cephalexin 250 MG Cap PO ONE (13:12)
[2019-12-17] MEDS ORDERED: Bacitracin/Neomycin/Polymyxin B Oint 0.9 GM U/D Packet TOP SCH (13:25)
[2019-12-17] MEDS ORDERED: Bacitracin/Neomycin/Polymyxin B Oint 0.9 GM U/D Packet ONE (13:25)
[2019-12-17] MEDS ORDERED: Cephalexin 250 MG Cap ONE (13:32)
[2019-12-17] MEDS ORDERED: Lidocaine 1% 20 ML MDV INJECT SCH (15:30)
== END 2019-12-17 13:45 | disposition home or self-care (01) ==
LOC: KA.ED 12:14
DX: S60.552A Superficial foreign body of left hand, initial encounter (principal); J45.909 Unspecified asthma, uncomplicated; K21.9 Gastro-esophageal reflux disease without esophagitis; M19.90 Unspecified osteoarthritis, unspecified site; F41.9 Anxiety disorder, unspecified; F32.9 Major depressive disorder, single episode, unspecified; E66.9 Obesity, unspecified; F17.210 Nicotine dependence, cigarettes, uncomplicated; Z23 Encounter for immunization; Z79.899 Other long term (current) drug therapy; W45.8XXA Other foreign body or object entering through skin, initial encounter
CPT/HCPCS: 10120; 90471; 90715; 99282-25; A9270-GY